=== PATIENT | male | born 1950 | race Caucasian/White ===

== ENCOUNTER 2017-06-28 10:52 | Outpatient (CLI) | payer MEDICARE ==
--- NOTE | 2017-06-28 12:44 | RAD ---
RADIOGRAPH CHEST 2 VIEWS: HISTORY: A 67-year-old male with dyspnea. FINDINGS: There is no air space density, pulmonary edema, pleural effusion, pneumothorax, or cardiomegaly. IMPRESSION: 1. No acute cardiopulmonary findings. 2. Status post right upper lobectomy with post surgical changes of the right hilum. rosa isela POS: [facility]
== END 2017-06-28 10:53 | disposition home or self-care (01) ==
LOC: RAD 10:52
PROVIDERS: ATTEND Internal Medicine Pulmonary Disease
DX: R06.00 Dyspnea, unspecified (principal); Z90.2 Acquired absence of lung [part of]; Z98.890 Other specified postprocedural states
CPT/HCPCS: 36415; 71046; 82565

== ENCOUNTER 2017-07-14 10:00 | Outpatient (CLI) | payer MEDICARE ==
--- NOTE | 2017-07-14 12:17 | PET ---
RADIONUCLIDE PET SCAN WITH CT ATTENUATION CORRECTION AND SPECT IMAGING: HISTORY: New left hilar mass. Initial staging. FINDINGS: Physiologic uptake of radiotracer is present throughout the enteric system and along each urinary tra ct. Hypermetabolic activity associated with the lobular mass at the right thyroid lobe now shows a ma ximum SUV of 11.4 (8.2). Q.Clear equals 13.2. Increased uptake associated with the left suprahilar mass shows a Q.Clear maximum SUV of 8.1. No abno rmal uptake is evident in the region of nodules at the left apex or the right lower lobe. Focal area of increased uptake at the body of the left iliac bone near the level of the lumbosacral j unction shows maximum Q.Clear SUV of 6.2. No other abnormal areas of radiotracer uptake are evident. Nondiagnostic CT attenuation correction im ages show calcified mediastinal lymph nodes. There is calcification of the arterial structures. Hyper dense stones in the dependent portion of the gallbladder lumen. Degenerative changes lumbar spine. Ri ght hip prosthesis. IMPRESSION: 1. 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 2. Interval increase in hypermetabolic activity associated with the dominant right thyroid lobe nodu le. 3. Cholelithiasis. 4. Atherosclerosis. POS: [facility]
== END 2017-07-14 10:01 | disposition home or self-care (01) ==
LOC: PET 10:00
PROVIDERS: ATTEND Internal Medicine Pulmonary Disease
DX: R91.8 Other nonspecific abnormal finding of lung field (principal); C34.02 Malignant neoplasm of left main bronchus; E04.1 Nontoxic single thyroid nodule; K80.20 Calculus of gallbladder without cholecystitis without obstruction; I70.90 Unspecified atherosclerosis
CPT/HCPCS: 78815; A9552

== ENCOUNTER 2017-07-18 11:04 | Outpatient (CLI) | payer MEDICARE ==
[2017-07-18 12:36] LABS: INR-International Normal Ratio 1.8; PTT 35.3 SEC (22.9-36.1); Prothrombin Time 21.5 SEC (12.0-14.7)
--- NOTE | 2017-07-20 20:13 | EKG ---
Test Reason : Blood Pressure : / mmHG Vent. Rate : 070 BPM Atrial Rate : 070 BPM P-R Int : 206 ms QRS Dur : 090 ms QT Int : 416 ms P-R-T Axes : 039 074 064 degrees QTc Int : 449 ms Normal sinus rhythm Normal ECG When compared with ECG of 24-SEP-2015 05:30, Right bundle branch block is no longer Present Confirmed by LAURIE GORDON (2) on 07/20/2017 8:13:25 PM Referred By: SHAKEEL Confirmed By:LAURIE GORDON
== END 2017-07-18 11:05 | disposition home or self-care (01) ==
LOC: LABBT 11:04
PROVIDERS: ATTEND Internal Medicine Pulmonary Disease
DX: R91.8 Other nonspecific abnormal finding of lung field (principal)
CPT/HCPCS: 85610; 85730; 93005; 93010

== ENCOUNTER 2017-07-21 06:30 | Day surgery (SDC) | payer MEDICARE ==
[2017-07-18 11:24] VITALS: BMI 30.6
[2017-07-21] MEDS ORDERED: Sodium Chloride 0.9% 1,000 ML IV SCH (07:15)
[2017-07-21] MEDS ORDERED: Lidocaine 1% (PF) 30 ML VIAL ONE (07:15)
[2017-07-21] MEDS ORDERED: Lidocaine 4% PF 5 ML AMP NEB SCH (07:15)
[2017-07-21] MEDS ORDERED: Fentanyl 100 MCG/2 ML VIAL ONE (07:15)
[2017-07-21] MEDS ORDERED: Benzocaine 20% Spray 60 ML CAN ONE (07:15)
[2017-07-21] MEDS ORDERED: Midazolam HCl 2 mg/2 ml Vial ONE (07:15)
--- NOTE | 2017-07-21 15:43 | OP ---
PROCEDURE PERFORMED: Bronchoscopy. INDICATION: Left upper lung mass, rule out bronchogenic carcinoma. POST-BRONCHOSCOPY DIAGNOSIS: Left upper lung mass, rule out bronchogenic carcinoma. After informed consent, the patient received DuoNeb with 4 mL of 4% lidocaine. During the procedure, he received a total of 3 mg of Versed and 75 mg of fentanyl. The flexible Olympus video bronchoscop e was then passed via the right nostril. Pharynx, upper pharynx, and vocal cords were visualized and normal. On entering the trachea, there was normal kevan sharp. Right lung was inspected initially . Previous right upper lobe lobectomy scar was seen which was normal. The rest of the right lung wa s unremarkable. Left lung was inspected thereafter. The left upper lung, the apical posterior, ante rior segments were slightly narrowed. Mucosa was slightly thickened, but no endobronchial disease wa s seen. The area bled to touch. The rest of the left lung including the lingular segment and the le ft lower lobe segments were unremarkable. The left upper lung was lavaged with normal saline 50 mL. Thereafter, under fluoroscopy, multiple brushings were obtained from the mass that appeared to be mo stly extrinsic. Unable to pSass the biopsy forceps because of the curve on the bronchoscope. No bio psy was done. Multiple brushings were obtained from the presumed left upper lung apical mass. The b rushings were sent for cytology. Washings were sent for AFB smear and culture, fungal smear culture, Gram stain and C&S. The patient tolerated the procedure well. BRIEF DISCHARGE NOTE: The patient tolerated the procedure well. Results will be notified to the pat ient and family. Further recommendation after above.
[2017-07-25 10:13] LABS: Fungus Stain Final report (.)
[2017-07-25 10:13] LABS: Fungus Stain Final report (.)
== END 2017-07-21 10:07 | disposition home or self-care (01) ==
LOC: SDC 06:30
PROVIDERS: ATTEND Internal Medicine Pulmonary Disease
PROC: 0B9G8ZX Drainage of Left Upper Lung Lobe, Via Natural or Artificial Opening Endoscopic, Diagnostic (ICD-10-PCS; principal; 2017-07-21)
PROC: 0BDG8ZX Extraction of Left Upper Lung Lobe, Via Natural or Artificial Opening Endoscopic, Diagnostic (ICD-10-PCS; 2017-07-21)
DX: R91.8 Other nonspecific abnormal finding of lung field (principal); Z88.8 Allergy status to other drugs, medicaments and biological substances
CPT/HCPCS: 76000; 87070; 87077; 87102; 87116; 87186; 87205; 87206; 88104; 88112; 88305; 99152; 99153; J2001; J2250; J3010

== ENCOUNTER 2017-08-04 15:30 | Inpatient (IN) | payer MEDICARE ==
--- NOTE | 2017-08-04 16:54 | RAD ---
CHEST ONE VIEW: 08/04/17 HISTORY: Emergency exam. Chest tube. Transfer. Chest pain. COMPARISON: Radiograph same day. FINDINGS: There is a left thoracostomy tube in place with tip near the mediastinum. Small to moderate left side d pneumothorax with apex at the left posterior second/third intercostal space. Heart size is enlarged . Linear opacities are present in both lung bases. There is abnormal enhancement of the hilum bilaterally. IMPRESSION: 1. Small left apical pneumothorax with satisfactory position of left thoracostomy. 2. Enlarged hilum bilaterally with abnormal appearance of the right suprahilar soft tissues. Thi s does correspond to the patient's recent PET CT likely corresponding to neoplasm. POS: [facility]
[2017-08-04] MEDS ORDERED: Ondansetron ODT 8 MG TAB ONE (17:31)
[2017-08-04] MEDS ORDERED: Morphine 4 MG/ML VIAL ONE (17:32)
[2017-08-04] MEDS ORDERED: Fentanyl 100 MCG/2 ML VIAL ONE (21:48)
[2017-08-04] MEDS ORDERED: HYDROcodone/Acetaminophen 5/325 mg Tablet PO PRN (22:57)
[2017-08-04] MEDS ORDERED: Ondansetron HCl/PF 4 MG/2 ML Vial IVP PRN (22:57)
[2017-08-04] MEDS ORDERED: Fentanyl 100 MCG/2 ML VIAL SLOW IVP PRN (22:57)
[2017-08-04] MEDS: Ketorolac Tromethamine 30 MG/ML VIAL IVP SCH (23:50)
[2017-08-04] MEDS: HYDROcodone/Acetaminophen 5/325 mg Tablet PO PRN (23:51)
[2017-08-05 02:14] VITALS: BMI 27.6
--- NOTE | 2017-08-05 04:11 | HP ---
HISTORY OF PRESENT ILLNESS: This is a 67-year-old gentleman who was found to have a left hilar mass and underwent a CT-guided biopsy about 2 days ago at [facility]. He developed pneumothorax and a catheter was placed and he was observed overnight with the catheter being removed the following day. He presented today with dyspnea and seen in the [place], where a 28 chest tube was placed and cu rrent chest x-ray shows good lung re-expansion. PAST MEDICAL HISTORY: Significant for right partial lung resection for carcinoma in 2014. He has a history of previous cardiac stents for myocardial infarctions, most recently in 2012 and remotely in 2001. He has also had some sort of arrhythmia, then treated by Dr. Rankin [facility] until it was stopped for these biopsies. PAST SURGICAL HISTORY: Zenker's diverticulum surgery, herniorrhaphy, right upper lobectomy, and colo n resection. SOCIAL HISTORY: The patient is retired. Nondrinker. Accompanied by family tonight. PHYSICAL EXAMINATION: GENERAL: He is an alert, cooperative gentleman in some discomfort due to his chest tube. He is john thing comfortably on room air with a heart rate of 84 and a blood pressure of 110. LUNGS: Clear to auscultation. ABDOMEN: Soft, nontender. EXTREMITIES: He has no peripheral edema and palpable pedal pulses. PLAN: At this time is for observation in the hospital on the admission with repeat chest x-ray; and if his x-ray looks good tomorrow, he currently has no air leak, we will stop the suction.
[2017-08-05] MEDS: Ketorolac Tromethamine 30 MG/ML VIAL IVP SCH ×4 (05:20→23:13)
--- NOTE | 2017-08-05 08:48 | RAD ---
PA AND LATERAL VIEWS OF CHEST: Date: 08/05/17 HISTORY: Chest tube placement. FINDINGS/IMPRESSION: Comparison made with exam from previous day. Left-sided chest tube remains in place with tiny left apical pneumothorax. The heart size is enlarged . There is volume loss in the right lung. POS: [facility]
[2017-08-05] MEDS: Docusate 100 MG CAP PO SCH ×2 (09:27→20:21)
[2017-08-05] MEDS: Ramipril 5 MG CAP PO SCH (09:27)
[2017-08-05] MEDS: Aspirin 81 mg Enteric Coated Tablet PO SCH (09:27)
[2017-08-05] MEDS: Enoxaparin Sodium 40 MG/0.4 ML SYRINGE SC SCH (09:32)
[2017-08-05] MEDS: HYDROcodone/Acetaminophen 5/325 mg Tablet PO PRN ×2 (09:39→20:23)
--- NOTE | 2017-08-05 20:02 | RAD ---
CHEST ONE VIEW: 08/05/17 HISTORY: 67-year-old male with history of shortness of breath. Left chest tube in place. COMPARISON: 08/05/17. There is a left chest tube extending into the left lung apical region. Tiny amount of subcutaneous em physema on the left. Possible very tiny apical pneumothorax but no significant pneumothorax seen. Mil d stable increased linear and interstitial markings. IMPRESSION: Left chest tube extending in the left apex with minimal subcutaneous emphysema. No significant pneumo thorax. The possibility of a very tiny apical pneumothorax would be difficult to totally exclude prasanth green. POS: [facility]
[2017-08-06] MEDS: HYDROcodone/Acetaminophen 5/325 mg Tablet PO PRN ×2 (01:32→23:58)
[2017-08-06] MEDS: Ketorolac Tromethamine 30 MG/ML VIAL IVP SCH ×4 (05:02→23:48)
--- NOTE | 2017-08-06 07:38 | RAD ---
CHEST 1 VIEW: Date: 08/06/17 HISTORY: 67-year-old male with history of chest tube post biopsy. COMPARISON: 08/05/17. FINDINGS: Again noted is a left chest tube extending into the left apex. Tiny amount of subcutaneous emphysema. Probable very tiny residual left apical pneumothorax. Stable appearing left chest. IMPRESSION: Probable very tiny residual left apical pneumothorax. Left chest tube in place. Small amount of subcu taneous emphysema. No new process. POS: [facility]
[2017-08-06] MEDS: Ramipril 5 MG CAP PO SCH (09:38)
[2017-08-06] MEDS: Docusate 100 MG CAP PO SCH ×2 (09:39→20:05)
[2017-08-06] MEDS: Aspirin 81 mg Enteric Coated Tablet PO SCH (09:39)
[2017-08-06] MEDS: Enoxaparin Sodium 40 MG/0.4 ML SYRINGE SC SCH (09:39)
[2017-08-06] MEDS: Polyethylene Glycol 3350 17 GM Packet PO PRN (20:05)
[2017-08-07] MEDS: Ketorolac Tromethamine 30 MG/ML VIAL IVP SCH ×3 (04:59→17:59)
[2017-08-07] MEDS: HYDROcodone/Acetaminophen 5/325 mg Tablet PO PRN ×2 (05:00→18:05)
[2017-08-07] MEDS: Ramipril 5 MG CAP PO SCH (09:09)
[2017-08-07] MEDS: Aspirin 81 mg Enteric Coated Tablet PO SCH (09:09)
[2017-08-07] MEDS: Enoxaparin Sodium 40 MG/0.4 ML SYRINGE SC SCH (09:09)
[2017-08-07] MEDS: Docusate 100 MG CAP PO SCH ×2 (09:10→20:27)
[2017-08-07] MEDS ORDERED: Ciprofloxacin 500 MG TAB PO SCH (10:00)
--- NOTE | 2017-08-07 10:05 | RAD ---
UPRIGHT PORTABLE CHEST 1 VIEW: Date: 08/07/17 HISTORY: 67-year-old male, follow-up left side pneumothorax. FINDINGS: Left chest tube remains in place. Probable persistent very tiny apical pneumothorax on the left side. Chronic changes on the right side. IMPRESSION: Stable chest. Probable very tiny residual apical pneumothorax. POS: [facility]
[2017-08-07] MEDS: Polyethylene Glycol 3350 17 GM Packet PO PRN (18:05)
[2017-08-07] MEDS: Ciprofloxacin 500 MG TAB PO SCH (20:25)
[2017-08-08] MEDS: Ketorolac Tromethamine 30 MG/ML VIAL IVP SCH ×2 (00:01→06:29)
[2017-08-08] MEDS: Ciprofloxacin 500 MG TAB PO SCH (06:28)
[2017-08-08 08:00] VITALS: BP 143/88; TEMP 98.9
--- NOTE | 2017-08-08 08:55 | RAD ---
PORTABLE CHEST: COMPARISON: 08/07/17 study. HISTORY: Chest tube removal. FINDINGS: Heart size is within normal limits. COPD changes are present. What appears to be a very tiny apical pneumothorax is seen. The right lung is clear. Old right rib fractures are present. IMPRESSION: 1. Tiny left apical pneumothorax. 2. Left hilar prominence, stable. POS: [facility]
--- NOTE | 2017-08-08 10:54 | DIS ---
The patient was admitted through the emergency room with a pneumothorax following a needle biopsy don e at another institution. A chest tube was placed in an outlying emergency room. The patient redeve loped a pneumothorax about a day and a half after admission despite having had no air leak up to that point. He was found to have a connection issue between his chest tube and the Pleur-evac system. T his was repaired. The patient then had his tube removed and to be discharged home with a normal ches t x-ray. Pathology is still pending from needle biopsy.
== END 2017-08-08 08:20 | disposition home or self-care (01) | DRG 201 ==
LOC: ERS 15:30 → SURG A 22:52
PROVIDERS: ADMIT Thoracic Surgery (Cardiothoracic Vascular Surgery); ATTEND Thoracic Surgery (Cardiothoracic Vascular Surgery)
DX: J93.9 Pneumothorax, unspecified (principal); Z87.891 Personal history of nicotine dependence; Z85.118 Personal history of other malignant neoplasm of bronchus and lung; Z90.2 Acquired absence of lung [part of]; Z95.5 Presence of coronary angioplasty implant and graft; Z79.01 Long term (current) use of anticoagulants; Z90.49 Acquired absence of other specified parts of digestive tract
CPT/HCPCS: 71045; 71046; 96374; 96375; J1650; J1885; J2270; J3010

== ENCOUNTER 2017-08-25 12:16 | Outpatient (CLI) | payer MEDICARE ==
--- NOTE | 2017-08-25 14:25 | MRI ---
BRAIN MRI WITH AND WITHOUT CONTRAST: Date: 08-25-17 Comparison: None. History: Lung cancer, assess for intracranial metastatic disease. Technique: Multiplanar, multisequence MR imaging of the brain is obtained with and without contrast. FINDINGS: The diffusion weighted imaging demonstrates no evidence for acute infarction. The gradient echo imaging demonstrates innumerable foci of blooming artifact throughout the bilateral cerebral hemispheres, at multiple levels within the brain stem, particularly the belly of the evelio, and within the left cerebellar hemisphere. These areas of blooming artifact suggest foci of intracran ial hemorrhage and/or calcification with precontrast T1 weighted imaging demonstrating numerous bilat eral T1 hyperintense lesions. Foci of increased T2 and FLAIR signal are seen corresponding with the maurice londono described multifocal lesions. Post contrast imaging demonstrates enhancement of innumerable intr aaxial lesions throughout the bilateral cerebral hemispheres, the brain stem, and bilateral cerebral hemispheres. The largest lesion in the left frontal lobe is noted inferiorly/medially on post contras t axial image 11 of series 9 measuring 1.3 cm. The largest lesion in the left occipital region is loc ated medially on image 12 of series 9 and measures 1.3 cm. Largest left temporal lobe lesion is noted inferiorly on image 7 of series 9 and measures 7 mm. Numerous left parietal lesions measure up to 7 mm. Largest right frontal lobe lesion is seen on image 12 of series 9 and measures up to 8 mm. Lana us parietal occipital and temporal right sided lesions are less than 1 cm in size. Innumerable subcen timeter lesions are noted within the brain stem, particularly the evelio, and throughout bilateral cere bellar hemispheres. No significant midline shift, mass effect, or ventricular enlargement is seen at this time. Imaged paranasal sinuses/mastoid air cells are well aerated. Arterial flow voids at axial level of sk ull base appear grossly unremarkable on T2 weighted imaging. IMPRESSION: Innumerable supratentorial and infratentorial intraaxial lesions, evidence of extensive metastatic di sease. Some of these lesions demonstrate T1 precontrast hyperintensity and many of these lesions demo nstrate blooming artifact on gradient echo imaging, consistent with hemorrhagic metastatic lesions. Results called to Dr. James at 2:15 p.m. on 08-25-17. Code CR POS: [facility]
--- NOTE | 2017-08-25 14:40 | MRI ---
MRI PELVIS WITH AND WITHOUT CONTRAST: Date: 08/25/17 HISTORY: Evaluate for metastatic disease. Lung cancer. COMPARISON: PET CT dated 07/14/17. FINDINGS: Corresponding to the abnormality seen on the PET CT in the left iliac bone and extending to the left iliac wing and left SI joint is a T1 hypo/T1 mildly hyperintense mass with enhancement. This extends through the anterior and posterior iliac cortex with a permeative appearance. It measures approximate ly 4.9 x 2.3 x approximately 4.3 cm. There is some edema long the deep margin of the left iliacus mus syd. There are enlarging soft tissue nodules at the left hemipelvis. The first is in the deep subcutaneous fat near the superior margin of the left gluteus lida muscle interposed in the fat between the gl uteus medius and lida muscles. This measures approximately 1.2 cm. There is also a soft tissue nod ule in the fat between the tensor fasciae latae muscle and the rectus femoris measuring 1.3 cm. Moder ate facet arthrosis lower lumbar spine. No other abnormal areas of definite metastatic involvement. IMPRESSION: 1. Findings are confirming left iliac bone metastatic deposit. 2. Findings suggesting soft tissue metastatic deposits: 1. Along the lateral margin left indirect rectus femoris tendon origin 2. Interposed between the left gluteus medius and minimus muscles in the subcutaneous fat. 3. Within the right tensor fasciae latae muscle. If biopsy is needed for confirmation, the iliac mass would probably be the easiest. 3. Bilateral direct fat-containing inguinal hernias. POS: [facility]
== END 2017-08-25 12:17 | disposition home or self-care (01) ==
LOC: MRI 12:16
PROVIDERS: ATTEND Internal Medicine Medical Oncology
DX: C18.2 Malignant neoplasm of ascending colon (principal); C79.51 Secondary malignant neoplasm of bone; K40.90 Unilateral inguinal hernia, without obstruction or gangrene, not specified as recurrent
CPT/HCPCS: 70553; 72197

== ENCOUNTER 2017-09-05 07:52 | Observation (INO) | payer MEDICARE ==
[2017-09-05] MEDS ORDERED: Diazepam 5 MG TAB ONE (08:30)
[2017-09-05 09:07] LABS: #Lymphocytes 0.4 thou/uL (1.20-3.40); #Monocytes 0.2 thou/uL (0.11-0.59); #Neutrophils 1.5 thou/uL (1.40-6.50); %Basophils 0.3 % (0.0-1.0); %Eosinophils 0.8 % (0.0-10.0); %Lymphocytes 20.3 % (21.0-51.0); %Monocytes 10.2 % (0.0-10.0); %Neutrophils 68.3 % (42.0-75.0); Hemoglobin 13.7 g/dL (14.0-18.0); Mean Corpuscular HGB CONC 31.6 g/dL (32.0-36.0); Mean Corpuscular Hemoglobin 26.7 pg (27.0-31.0); Mean Corpuscular Volume 84.4 fL (78.0-98.0); Mean Platelet Volume 6.6 fL (7.4-10.4); Platelet Count 157 thou/uL (130-400); RBC Distribution Width 13.4 % (11.5-14.5); Red Blood Cell (RBC) Count 5.14 mill/uL (4.70-6.10); White Blood Cell (WBC) Count 2.1 thou/uL (4.8-10.8)
[2017-09-05 09:31] LABS: CKMB 1.7 ng/mL (0-6.6); Troponin I Less than 0.010 ng/mL (< 0.028)
[2017-09-05 09:32] LABS: ALT (SGPT) 26 U/L (8-55); AST (SGOT) 15 U/L (5-34); Albumin 3.9 g/dL (3.4-4.8); Alkaline Phosphatase 82 U/L (40-150); Anion Gap 10 mmol/L (10-20); BUN (Urea Nitrogen) 12 mg/dL (8.4-25.7); Bilirubin, Total 0.5 mg/dL (0.2-1.2); CK (CPK) 29 U/L (30-200); Calc. Creatinine Clearance 0 mL/min (70-130); Calcium 8.5 mg/dL (7.8-10.44); Carbon Dioxide 26 mmol/L (23-31); Chloride 101 mmol/L (98-107); Estimated GFR-MDRD Greater than 90; Globulin 2.3 g/dL (2.4-3.5); Glucose 139 mg/dL (80-115); Lipase 36 U/L (8-78); Potassium 4.3 mmol/L (3.5-5.1); Protein, Total 6.2 g/dL (5.8-8.1); Sodium 133 mmol/L (136-145)
--- NOTE | 2017-09-05 09:41 | RAD ---
RADIOGRAPH CHEST 1 VIEW: Date: 09/05/17 Time: 0801 HOURS HISTORY: 67-year-old male with nausea and emesis. Status post chemotherapy for metastatic left lung cancer. COMPARISON: 08/08/17. FINDINGS: The previously demonstrated tiny left apical pneumothorax is no longer present. There has been no oth er interval change. Left hilum is enlarged. Hyperlucency and hyperinflation of the bilateral upper lo bes consistent with COPD. Chronically elevated right hemidiaphragm. No cardiomegaly or pulmonary elsa a. No consolidation. IMPRESSION: 1. No acute findings. 2. Interval resolution of the previously demonstrated tiny left apical pneumothorax. 3. Chronically elevated right hemidiaphragm. 4. Emphysema. 5. Left hilar primary lung cancer. JN [] POS: [facility]
[2017-09-05] MEDS ORDERED: Ondansetron ODT 4 MG TAB ONE ×2 (09:44→13:40)
--- NOTE | 2017-09-05 10:35 | CT ---
CT ANGIO CHEST WITH CONTRAST: Date: 09/05/17 Multiple axial tomograms obtained through chest following pulmonary angio protocol with multiplanar r econstruction and 3D postprocessing. INDICATION: Lung cancer, currently on chemo and radiation. Hypoxia. Assess for pulmonary embolus. Comparison made to CT chest from [facility] dated 06/28/17. FINDINGS: Pulmonary arteries show adequate opacification. No evidence of pulmonary embolus identified. There ar e postoperative changes in the right hilar region with multiple surgical clips. Review of the lung richard show no evidence of inflammatory infiltrate. No effusion. The 1.0 cm nodule in the left apex is again seen and is unchanged. The left hilar mass lesion is again seen and has mildly increased in size. Maximal craniocaudal dimen bora in the coronal plane is measured at 4.6 cm today, whereas previous maximal craniocaudal dimensio n in coronal plane measured at 4.0 cm. There is now a right hilar mass which was not present on the 06/28/17 exam. This right hilar mass curtis sures approximately 2.0 cm greatest dimension in the coronal plane. Multinodular and enlarged right lobe of thyroid is present. This was partially imaged on the prior ex am. There is an enlarging lymph node in the left axilla today which has significantly changed since the p rior exam. This lymph node now measures 2.5 cm. There is another 1.5 cm left axillary nodule, which i s new, and there are other smaller, subcentimeter, nodes now present. IMPRESSION: 1. No evidence of pulmonary embolus. 2. Enlarging left hilar mass since recent exam. 3. New right hilar mass is now seen as described above. 4. New left axillary adenopathy since prior exam. 5. The 1.0 cm nodule in the left apex is again noted. 6. Multinodular enlarged right lobe of thyroid again noted. 7. Incidentally noted are numerous calcified gallstones layering dependently in the neck of the gall bladder. POS: [facility]
[2017-09-05 11:45] LABS: Bilirubin Negative (Negative); Blood, Urine Negative (Negative); Clarity CLEAR (Clear); Glucose, Urine (Dipstick) Negative (Negative); Leukocyte Negative (Negative); Nitrite Negative (Negative); Protein, Urine (Dipstick) Negative (Neg-Trace); Specific Gravity, Urine 1.015 (1.002-1.036); Urobilinogen 0.2 mg/dL (0.2-1.0)
[2017-09-05] MEDS ORDERED: Iopamidol 370 76% 100 ML VIAL ONE (13:47)
--- NOTE | 2017-09-05 14:07 | RAD ---
SUPINE ABDOMEN: HISTORY: Small bowel obstruction. Question ileus. FINDINGS/IMPRESSION: There is contrast opacification of the urinary collecting structures and opacification of the bladder from recent IV contrast injection. Bowel gas pattern appears unremarkable on this supine 1-view projection. There appears to be some sc attered gas and stool in the colon. No evidence of small bowel dilatation or obstruction on this sin gle projection. Supine and upright views would be of benefit if there is concern of small bowel obst ruction. POS: [facility]
[2017-09-05] MEDS ORDERED: Ondansetron HCl/PF 4 MG/2 ML Vial IVP PRN (14:54)
[2017-09-05] MEDS ORDERED: Meclizine HCl 12.5 MG TAB PO PRN (14:54)
[2017-09-05] MEDS ORDERED: Ondansetron ODT 4 MG TAB PO PRN (14:54)
[2017-09-05] MEDS ORDERED: Metoclopramide HCl 10 MG/2 ML VIAL IVP PRN (14:54)
[2017-09-05] MEDS ORDERED: Acetaminophen 325 MG TAB PO PRN (14:54)
[2017-09-05] MEDS: Sodium Chloride 0.9% 1,000 ML IV SCH (15:00)
[2017-09-05] MEDS: HYDROcodone/Acetaminophen 5/325 mg Tablet PO PRN ×2 (16:13→20:33)
[2017-09-05 17:13] VITALS: BMI 28.5
[2017-09-05] MEDS: Tamsulosin HCl 0.4 MG CAP PO SCH (20:33)
[2017-09-06] MEDS: HYDROcodone/Acetaminophen 5/325 mg Tablet PO PRN (02:30)
[2017-09-06 04:43] LABS: ALT (SGPT) 25 U/L (8-55); AST (SGOT) 17 U/L (5-34); Albumin 3.9 g/dL (3.4-4.8); Alkaline Phosphatase 79 U/L (40-150); Anion Gap 10 mmol/L (10-20); BUN (Urea Nitrogen) 9 mg/dL (8.4-25.7); Bilirubin, Direct 0.3 mg/dL (0.1-0.3); Bilirubin, Total 0.8 mg/dL (0.2-1.2); Calc. Creatinine Clearance 132 mL/min (70-130); Calcium 8.9 mg/dL (7.8-10.44); Carbon Dioxide 28 mmol/L (23-31); Chloride 99 mmol/L (98-107); Estimated GFR-MDRD Greater than 90; Glucose 107 mg/dL (80-115); Potassium 3.7 mmol/L (3.5-5.1); Protein, Total 6.3 g/dL (5.8-8.1); Sodium 133 mmol/L (136-145)
[2017-09-06] MEDS: Sodium Chloride 0.9% 1,000 ML IV SCH ×4 (04:45→21:00)
[2017-09-06 04:56] LABS: Hemoglobin 14.6 g/dL (14.0-18.0); Mean Corpuscular HGB CONC 33.3 g/dL (32.0-36.0); Mean Corpuscular Hemoglobin 27.9 pg (27.0-31.0); Mean Corpuscular Volume 83.6 fL (78.0-98.0); Mean Platelet Volume 6.4 fL (7.4-10.4); Platelet Count 169 thou/uL (130-400); RBC Distribution Width 13.4 % (11.5-14.5); Red Blood Cell (RBC) Count 5.24 mill/uL (4.70-6.10); White Blood Cell (WBC) Count 2.9 thou/uL (4.8-10.8)
[2017-09-06 04:57] LABS: Band 7 % (5-11); Eosinophils 2 % (0-10); Lymphocytes 42 % (21-51); MDiff Complete? YES; Monocytes 7 % (0-10); Neutrophil 42 % (42-75); PLT Morphology Comment Appears Adequate
[2017-09-06] MEDS: Mometasone/Formoterol 120 PUFF INHALER INH SCH (07:03)
--- NOTE | 2017-09-06 07:41 | HP ---
PRIMARY CARE PHYSICIAN: Dr. Lozoya. CHIEF COMPLAINT: Nausea and vomiting. HISTORY OF PRESENT ILLNESS: Mr. Chen is a pleasant 67-year-old gentleman that has a history of elidia nocarcinoma of the prostate as well as lung cancer. He is status post a right lobectomy. He was rec ently diagnosed with what appears to be recurrent lung cancer and has been treated by Dr. James. He recently started his first cycle of chemotherapy and he received this on 08/24. This went for 3 d ays and the plan was for him to proceed with radiation therapy as well. This was supposed to start l ater this week and he was supposed to have a MediPort placed on tomorrow. However, this morning, eder und 1:00 in the morning, he woke up from sleep feeling like he needed to throw up. He was nauseated and then began vomiting. When asked how many times he vomited, he says he is not sure, but it has be en multiple times. He says that he has not thrown up any blood. He says he has had some discomfort in the upper chest and upper stomach area. He says it is very difficult to quantitate. He says that his chest hurts, but he denied that it feels like a stabbing pain or a cramping pain. He also says that he cannot tell whether or not food makes the pain better or worse. It seems to not have made an y difference. He does say that the nausea seems to be somewhat positional in that it does tend to ge t worse with movement. He denies any fevers or chills. When asked about diarrhea, he says he has ch ronic diarrhea, but this is related to him taking medications for constipation. He says the diarrhea is watery and there is no blood. He has never had anything happen to him like this before. Other s ignificant symptoms, he says he has had a headache rather constantly and it is over the entire head. He does have sinus or sinus symptoms, but these are relatively constant. He does feel occasionally dizzy and lightheaded, but this is usually when he gets up to move around. He also complains of some nocturia as well as some difficulty with his urine stream, but he attributes this to prostate cance r. REVIEW OF SYSTEMS: All systems were reviewed and negative except as mentioned in the history of pres ent illness. PAST MEDICAL HISTORY: Significant for prostate cancer, hypertension, heart disease, atrial fibrillat ion, COPD. PAST SURGICAL HISTORY: He has had a right lobectomy, hip replacement, surgery for Zenker's diverticu lum and cardiac ablation for atrial fibrillation. ALLERGIES: AMBIEN. SOCIAL HISTORY: He is , has 3 children. His sister is his surrogate decision maker and her n delaney is Violette Oakes. He has a DNR order and would not want to be resuscitated. He is a former smoke r. He quit 2 years ago. He denies any alcohol use and again he is . FAMILY HISTORY: Significant for heart disease in his father as well as grandfather had lung cancer a nd hypertension also runs in the family. MEDICATIONS: Include metoprolol 50 mg daily, aspirin 81 mg a day, Flomax 0.4 mg twice daily, Crestor 10 mg daily, and ramipril 5 mg daily. PHYSICAL EXAMINATION: GENERAL: He is alert and oriented. He appears to be in no acute distress. He is well-developed and well-nourished. VITAL SIGNS: Blood pressure was 143/90, heart rate 90, respiratory rate of 18, temperature is 97.5. HEENT: Pupils are equal, round and reactive. Extraocular muscles are intact. Sclerae are anicteric . He did have some horizontal nystagmus. His tympanic membranes were difficult to visualize. Quite a bit of wax in the external canal, but what I could see of the internal auditory canals, there was no fluid behind the drum and no erythema. Throat: He is edentulous and the patient's uvula was not visualized and there was no erythema. NECK: There is no adenopathy, no bruits. LUNGS: Clear to auscultation. There is no wheezing, no rales. CARDIOVASCULAR: He had normal S1 and S2. I did not appreciate an S3 or S4. No murmurs, clicks, no rubs. ABDOMEN: Soft. He had some mild epigastric tenderness. There was no rebound or guarding, no organo megaly. EXTREMITIES: There is no edema, no calf tenderness. He does have some hammertoe deformities on both feet and 2+ dorsalis pedis pulses bilaterally. NEUROLOGIC: He is moving all extremities and is grossly nonfocal. LABORATORY DATA AND IMAGING DATA: White blood cell count is 2.1, hemoglobin 13.7, hematocrit is 43.3 , platelet count is 157. Sodium 133, potassium 4.3, chloride is 101, CO2 is 26, BUN of 12, creatinin e 0.69, and glucose is 139. His liver function tests were normal. Troponin was 0.010. Urinalysis w as essentially negative. He had a CT scan of the chest for pulmonary embolism. This was negative fo r PE. There was an enlarging left hilar mass, a new right hilar mass, new axillary adenopathy since prior exam. A 1 cm nodule in the left apex of the lung was once again noted and multinodular enlarge d right lobe of the thyroid and incidentally noted numerous calcified gallstones. The patient had an MRI on of the brain showing innumerable supratentorial and infratentorial intraaxial lesions, e vidence for metastatic disease. ASSESSMENT AND PLAN: 1. This is a pleasant 57-year-old gentleman who presents to the emergency room with intractable naus ea and vomiting. The etiology of which is unclear. He has a history of lung cancer who has already been started on chemotherapy; however, he is almost 2 weeks out from his last treatment; therefore, i t is likely that the nausea and vomiting is chemotherapy related. It is noted that he has numerous c erebral metastatic disease, but there is no evidence of significant mass effect. Based on these meta static lesions, the ventricles were reported to be normal. Therefore, it is unlikely that [employer] W[employer] TESTER etiolo gy for the nausea and vomiting. He does give some history suggestive of benign positional vertigo; h owever, it is not a classic case. He did have some horizontal nystagmus. He does complain of some s inus complaints. Therefore, it could be related to this and he also has innumerable gallstones incid entally noted; however, he does not have an elevation in his LFTs. He does not seem to have postpran dial symptoms. Therefore, it is unclear whether or not the gallstones are causing any problems eithe r. Therefore, with regards to his evaluation and workup, I think it is prudent to see if this is briana ething self-limiting such as a gastroenteritis or possible labyrinthitis or vertigo which hopefully w ill be self-limiting and fairly quickly and we will treat him symptomatically over the course of the next 24-48 hours. If his symptoms persist, then we may need to pursue a HIDA scan to see whether or not the stones in the gallbladder actually causing some type of symptomatology. We will also consult his oncologist for their input as well and we will also consult General Surgery with regards to plac ing his MediPort which had been a planned surgery on tomorrow as well. 2. He has a history of chronic atrial fibrillation. He had been on Xarelto; however, this is on hol d. His sister says she believes likely related to the brain tumors. Therefore, we will continue to hold this during his hospital stay. His heart rate so far is controlled. 3. History of chronic obstructive pulmonary disease. Medications, there is no list of any type of i nhalers, but we will place him on some DuoNebs as needed and further treatment will be based on the p atient's clinical course and response to therapy.
[2017-09-06] MEDS ORDERED: Bupivacaine/Epinephrine 0.25% 30 ML VIAL ONE (07:43)
[2017-09-06] MEDS ORDERED: Lidocaine 2% 10 ML INJ ONE (07:43)
[2017-09-06] MEDS ORDERED: CEFAZOLIN/Water 2 GM/20 ML SYRINGE ONE (07:53)
[2017-09-06] MEDS ORDERED: Midazolam HCl 2 mg/2 ml Vial ONE (07:56)
[2017-09-06] MEDS ORDERED: Fentanyl 100 MCG/2 ML VIAL ONE (07:56)
[2017-09-06] MEDS ORDERED: HYDROcodone/Acetaminophen 10/325 mg Tablet PO PRN (09:17)
--- NOTE | 2017-09-06 09:42 | OP ---
DATE OF PROCEDURE: 09/06/2017. PREOPERATIVE DIAGNOSIS: Lung cancer. POSTOPERATIVE DIAGNOSIS: Lung cancer. PROCEDURE PERFORMED: Tunneled central line subcutaneous port (MediPort, CT injectable). SURGEON: Dr. Azevedo. ANESTHESIA: General. ESTIMATED BLOOD LOSS: Minimal. COMPLICATIONS: None. SPECIMEN: None. FINDINGS: Tip of the catheter is at the atriocaval junction. TECHNIQUE: The patient was taken to the operating room and placed supine on the table. After sedati on was obtained, bilateral neck and chest is prepped and draped in a sterile fashion. Local anesthet ic infiltrated over the right internal jugular vein. Internal jugular vein cannulated using a 22-gau ge finder needle followed by a Seldinger needle. Wire was passed into the superior vena cava under f luoroscopic guidance. A small tiana was made at the wire entrance site. A separate 3-cm incision was made in the right upper chest. Subcutaneous pocket made below the lower incision. Tubing for the M ediPort tunneled from the inferior to superior incision. Introducer sheath placed over the wire into the superior vena cava under fluoroscopic guidance. The dilator and wire removed. The end of the c atheter was threaded into the sheath and the sheath is peeled away. The tip of the catheter is at th e atriocaval junction. The MediPort tubing is cut to fit the MediPort at the lower incision, connect ed to the port which is sewn to the chest wall in the subcutaneous pocket. The MediPort flushes and draws blood without difficulty. It is flushed with a heparin flush. All incisions were irrigated an d closed using 3-0 Vicryl, 4-0 Monocryl, and Dermabond. The patient was en route to recovery in stab le condition. All instrument counts, needle counts, lap counts were correct.
[2017-09-06] MEDS: Tamsulosin HCl 0.4 MG CAP PO SCH ×2 (10:29→20:38)
--- NOTE | 2017-09-06 11:01 | RAD ---
CHEST TWO VIEWS: INDICATIONS: Mediport placement. COMPARISON: 09/15/2017 FINDINGS: A right chest port is in place with the tip overlying the SVC region. No post procedural pneumothora x is visualized. Mild elevation of the right hemidiaphragm is again seen. The chest is otherwise si milar. IMPRESSION: Interval placement of right-sided Mediport without evidence of post procedural pneumothorax. POS: [facility]
[2017-09-06] MEDS ORDERED: PROPOFOL 200 MG/20 ML VIAL ONE (11:43)
[2017-09-06] MEDS ORDERED: Ondansetron HCl/PF 4 MG/2 ML Vial ONE (11:43)
[2017-09-06] MEDS: HYDROcodone/Acetaminophen 10/325 mg Tablet PO PRN ×3 (12:39→20:35)
--- NOTE | 2017-09-06 15:05 | PDOC.PN ---
- Subjective Encounter Start Date: 09/06/17 Encounter Start Time: 11:45 Subjective: pt up in bed still complains of being dizzy - Objective Resuscitation Status: Resuscitation Status DNR:Do Not Resuscitate Vital Signs & Weight: Vital Signs (12 hours) Temp Pulse Resp BP Pulse Ox 09/06/17 09:10 98.0 F 90 18 133/81 97 09/06/17 07:03 82 14 96 Weight Weight 210 lb I&O: 09/05/17 09/06/17 09/07/17 06:59 06:59 06:59 Intake Total 1680 Output Total 300 1250 Balance 1380 -1250 Result Diagrams: 09/06/17 04:05 09/06/17 04:05 Phys Exam - Physical Examination HEENT: PERRLA, moist MMs, sclera anicteric, TM's clear, oral pharynx no lesions , 2+ tonsils Neck: no nodes, no JVD, supple, full ROM Respiratory: no wheezing, no rales, no rhonchi, wheezing present, clear to auscultation bilateral Cardiovascular: RRR, no significant murmur, no rub, gallop, irregular Gastrointestinal: soft, non-tender, no distention, positive bowel sounds Musculoskeletal: no edema, pulses present, edema present significant dizziness Dx/Plan (1) Dizziness Code(s): R42 - DIZZINESS AND GIDDINESS Status: Acute (2) Anemia Code(s): D64.9 - ANEMIA, UNSPECIFIED Status: Chronic (3) Paroxysmal a-fib Code(s): I48.0 - PAROXYSMAL ATRIAL FIBRILLATION Status: Chronic (4) A-fib Code(s): I48.91 - UNSPECIFIED ATRIAL FIBRILLATION Status: Acute - Plan pt is very dizzy -: will schedule antivert. pt on decadron -: dizziness most likely due to his brain mets? -: will get PT to see pt. cerebellum test normal but unable to get -: pt up since he is very unstable. * . Review of Systems - Review of Systems ENT: negative: Ear Pain, Ear Discharge, Nose Pain, Nose Discharge, Nose Congestion, Mouth Pain, Mouth Swelling, Throat Pain, Throat Swelling, Other Respiratory: negative: Cough, Dry, Shortness of Breath, Hemoptysis, SOB with Excertion, Pleuritic Pain, Sputum, Wheezing Gastrointestinal: negative: Nausea, Vomiting, Abdominal Pain, Diarrhea, Constipation, Melena, Hematochezia, Other Genitourinary: negative: Dysuria, Frequency, Incontinence, Hematuria, Retention , Other Musculoskeletal: negative: Neck Pain, Shoulder Pain, Arm Pain, Back Pain, Hand Pain, Leg Pain, Foot Pain, Other Other: dizziness - Medications/Allergies Allergies/Adverse Reactions: Allergies Allergy/AdvReac Type Severity Reaction Status Date / Time zolpidem tartrate Allergy Severe Anxiety Verified 07/18/17 11:24 [From [place]] Medications: Current Medications Acetaminophen (Tylenol) 650 mg PO Q4H PRN PRN Reason: Headache/Fever or Pain Hydrocodone Bitart/Acetaminophen ([place] 5/325) 1 tab PO Q4H PRN PRN Reason: Moderate to Severe Pain (6-10) Last Admin: 09/06/17 02:30 Dose: 1 tab Hydrocodone Bitart/Acetaminophen ([place] 10/325) 1 tab PO Q4H PRN PRN Reason: Pain Hydrocodone Bitart/Acetaminophen ([place] 10/325) 2 tab PO Q4H PRN PRN Reason: Pain Last Admin: 09/06/17 12:39 Dose: 2 tab Albuterol/Ipratropium (Duoneb) 3 ml NEB [id number] PRN PRN Reason: SOB &/or Wheezing Dexamethasone (Decadron) 4 mg PO Q8H [facility] Sodium Chloride (Normal Saline 0.9%) 1,000 mls @ 75 mls/hr IV .[id number] [facility] Last Admin: 09/06/17 05:05 Dose: 1,000 mls Meclizine HCl (Antivert) 12.5 mg PO TID [facility] Metoclopramide HCl (Reglan) 5 mg IVP Q4H PRN PRN Reason: Nausea Mometasone Furoate/Formoterol Fumar (Dulera 200 Mcg/5 Mcg Inhaler) 1 puff INH DAILY-RT [facility] Last Admin: 09/06/17 07:03 Dose: 1 puff Ondansetron HCl (Zofran Odt) 4 mg PO Q6H PRN PRN Reason: Nausea/Vomiting Last Admin: 09/05/17 16:13 Dose: 4 mg Ondansetron HCl (Zofran) 4 mg IVP Q6H PRN PRN Reason: Nausea/Vomiting Sodium Chloride (Flush - Normal Saline) 10 ml IVF Q12HR [facility] Sodium Chloride (Flush - Normal Saline) 10 ml IVF PRN PRN PRN Reason: Saline Flush Tamsulosin HCl (Flomax) 0.4 mg PO BID [facility] Last Admin: 09/06/17 10:29 Dose: 0.4 mg
[2017-09-06] MEDS: Meclizine HCl 12.5 MG TAB PO SCH ×2 (15:15→20:37)
[2017-09-06] MEDS: Dexamethasone 4 MG TAB PO SCH ×2 (15:15→22:50)
--- NOTE | 2017-09-06 16:24 | CON ---
DATE OF CONSULTATION: 09/06/2017 REASON FOR CONSULTATION: Lung cancer. HISTORY OF PRESENT ILLNESS: Mr. Chen is a 67-year-old gentleman with a significant oncological history including stage I carcinoma of the colon in 2002 , non-small cell lung cancer stage IB in 2014, prostate cancer diagnosed in 2017 and most recently a neuroendocrine tumor, high grade of the left lung in . He presented to the emergency room with intractable nausea and vomiting. 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 He received a dose of cycle 1 of carboplatin and STRATEGY DIRECTOR- 16 in mid August. He had an MRI of the brain which showed a brain met numerous metastatic lesions. He was due to start radiation on this past Tuesday. The patient has been complaining of dizziness on this admission and was initially started on meclizine with no improvement. His nausea and vomiting has resolved. We were asked to see the patient regarding his cancer. The patient had a MediPort placed this morning. PAST MEDICAL HISTORY: 1. Oncological history is noted in HPI. 2. Newly diagnosed metastatic brain lesions. 3. Hypertension. 4. History of [place] with stent placement. 5. Atrial fibrillation. 6. Hyperlipidemia. 7. COPD. 8. Acid reflux. 9. Zenker's diverticulum. PAST SURGICAL HISTORY: 1. Coronary artery stent placement. 2. Right hemicolectomy. 3. Right upper lobectomy. 4. Right neck skin biopsy. 5. EGD. 6. Left upper lobe bronchoscopy. 7. Left lobe FNA. ALLERGIES: AMBIEN. HOME MEDICATIONS: 1. Aspirin 325 mg daily. 2. Nexium 20 mg daily. 3. Metoprolol succinate 25 mg daily. 4. Ramipril 5 mg daily. 5. Rosuvastatin calcium 10 mg daily. 6. Flomax daily. 7. MVI daily. 8. Reglan 10 mg t.i.d. 9. Xarelto 20 mg daily. FAMILY HISTORY: Noncontributory. SOCIAL HISTORY: Patient is , has 3 children, lives alone. Former smoker , 90 years pack history. No alcohol or illicit drug use. REVIEW OF SYSTEMS: 10-point review of systems is negative except for dizziness. PHYSICAL EXAMINATION: VITAL SIGNS: Temperature is 98.0, pulse is 90, respiratory rate 18, BP is 133/ 81. He is 97% on room air. GENERAL: Well-developed, well-nourished male in no acute distress. HEENT: Normocephalic, atraumatic. Pupils equal and reactive to light. NECK: Supple. CARDIOVASCULAR: Regular rate and rhythm. LUNGS: Clear. ABDOMEN: Soft, nontender, bowel sounds are positive. EXTREMITIES: No clubbing, cyanosis or edema. SKIN: No rash. HEMATOLOGIC: No petechia or purpura. NEUROLOGIC: Nonfocal. PSYCHIATRIC: The patient is alert and oriented and appropriate. PERTINENT LABORATORY AND X-RAYS: Current WBCs are 2.9, hemoglobin 14.6, hematocrit 43.8, platelet count 169,000. He has got 68% neutrophils, 20% lymphocytes. Sodium is 133, potassium 3.7, chloride 99, CO2 is 28, BUN is 9, creatinine 0.72, calcium 8.9, total bilirubin is 0.8, AST 17, ALT is 25, alkaline phosphatase is 79. Serum total protein is 6.3, albumin 3.9. ASSESSMENT: 1. 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 2. Dizziness, possibly related to #1. DISCUSSION: The patient was not started on steroids after a diagnosis with brain metastasis because he was asymptomatic. I have discussed this with Dr. Wright. At this time, we feel it is appropriate to start oral Decadron. Hopefully, this will improve his dizziness. Meclizine has been placed as a p.r.n. order. He was due to start brain radiation on Tuesday, which will be rescheduled. Once his dizziness has improved, he can be discharged home. He is not due for his next chemotherapy cycle until next week. We will provide supportive care. Thank you for the consult. CEDRIC
[2017-09-07] MEDS: HYDROcodone/Acetaminophen 10/325 mg Tablet PO PRN ×4 (00:36→19:28)
[2017-09-07] MEDS: Mometasone/Formoterol 120 PUFF INHALER INH SCH (06:40)
[2017-09-07] MEDS: Meclizine HCl 12.5 MG TAB PO SCH ×2 (07:54→18:31)
[2017-09-07] MEDS: Tamsulosin HCl 0.4 MG CAP PO SCH ×2 (07:54→19:58)
[2017-09-07] MEDS: Dexamethasone 4 MG TAB PO SCH ×3 (07:54→22:04)
[2017-09-07] MEDS: Sodium Chloride 0.9% 1,000 ML IV SCH (08:24)
[2017-09-07] MEDS ORDERED: Metoprolol Tartrate 50 MG TAB PO SCH (09:15)
--- NOTE | 2017-09-07 15:14 | PDOC.PN ---
- Subjective Encounter Start Date: 09/07/17 Encounter Start Time: 09:30 Subjective: pt up in bed still is very dizzy - Objective Resuscitation Status: Resuscitation Status DNR:Do Not Resuscitate Vital Signs & Weight: Vital Signs (12 hours) Temp Pulse Resp BP Pulse Ox 09/07/17 08:14 98.7 F 122 H 18 146/88 H 95 09/07/17 08:00 98.7 F 122 H 18 Weight Weight 210 lb I&O: 09/06/17 09/07/17 09/08/17 06:59 06:59 06:59 Intake Total 1680 1500 Output Total 300 1650 800 Balance 1380 -150 -800 Result Diagrams: 09/06/17 04:05 09/06/17 04:05 Phys Exam - Physical Examination HEENT: PERRLA, moist MMs, sclera anicteric, TM's clear, oral pharynx no lesions , 2+ tonsils Neck: no nodes, no JVD, supple, full ROM Respiratory: no wheezing, no rales, no rhonchi, wheezing present, clear to auscultation bilateral Cardiovascular: RRR, no significant murmur, no rub, gallop, irregular Gastrointestinal: soft, non-tender, no distention, positive bowel sounds Dx/Plan (1) Dizziness Code(s): R42 - DIZZINESS AND GIDDINESS Status: Acute (2) Anemia Code(s): D64.9 - ANEMIA, UNSPECIFIED Status: Chronic (3) Paroxysmal a-fib Code(s): I48.0 - PAROXYSMAL ATRIAL FIBRILLATION Status: Chronic (4) A-fib Code(s): I48.91 - UNSPECIFIED ATRIAL FIBRILLATION Status: Acute - Plan will increase his antivert to 25mg tid -: ? inpatient rehab since pt lives alone. will ask special education case manager -: pt has been using a lot of afrin. will rx flonase -: if pt feels better possible discharge in am * . Review of Systems - Review of Systems Eyes: negative: Pain, Vision Change, Conjunctivae Inflammation, Eyelid Inflammation, Redness, Other ENT: negative: Ear Pain, Ear Discharge, Nose Pain, Nose Discharge, Nose Congestion, Mouth Pain, Mouth Swelling, Throat Pain, Throat Swelling, Other Respiratory: negative: Cough, Dry, Shortness of Breath, Hemoptysis, SOB with Excertion, Pleuritic Pain, Sputum, Wheezing Cardiovascular: negative: chest pain, palpitations, orthopnea, paroxysmal nocturnal dyspnea, edema, light headedness, other Gastrointestinal: negative: Nausea, Vomiting, Abdominal Pain, Diarrhea, Constipation, Melena, Hematochezia, Other Genitourinary: negative: Dysuria, Frequency, Incontinence, Hematuria, Retention , Other Musculoskeletal: negative: Neck Pain, Shoulder Pain, Arm Pain, Back Pain, Hand Pain, Leg Pain, Foot Pain, Other - Medications/Allergies Allergies/Adverse Reactions: Allergies Allergy/AdvReac Type Severity Reaction Status Date / Time zolpidem tartrate Allergy Severe Anxiety Verified 07/18/17 11:24 [From [facility]] Medications: Current Medications Acetaminophen (Tylenol) 650 mg PO Q4H PRN PRN Reason: Headache/Fever or Pain Hydrocodone Bitart/Acetaminophen ([place] 5/325) 1 tab PO Q4H PRN PRN Reason: Moderate to Severe Pain (6-10) Last Admin: 09/06/17 02:30 Dose: 1 tab Hydrocodone Bitart/Acetaminophen ([place] 10/325) 1 tab PO Q4H PRN PRN Reason: Pain Hydrocodone Bitart/Acetaminophen ([place] 10/325) 2 tab PO Q4H PRN PRN Reason: Pain Last Admin: 09/07/17 07:55 Dose: 2 tab Albuterol/Ipratropium (Duoneb) 3 ml NEB [id number] PRN PRN Reason: SOB &/or Wheezing Dexamethasone (Decadron) 4 mg PO Q8H [facility] Last Admin: 09/07/17 07:54 Dose: 4 mg Sodium Chloride (Normal Saline 0.9%) 1,000 mls @ 75 mls/hr IV .[id number] [facility] Last Admin: 09/07/17 08:24 Dose: Not Given Meclizine HCl (Antivert) 25 mg PO TID [facility] Metoclopramide HCl (Reglan) 5 mg IVP Q4H PRN PRN Reason: Nausea Metoprolol Tartrate (Lopressor) 50 mg PO DAILY [facility] Mometasone Furoate/Formoterol Fumar (Dulera 200 Mcg/5 Mcg Inhaler) 1 puff INH DAILY-RT [facility] Last Admin: 09/07/17 06:40 Dose: 1 puff Ondansetron HCl (Zofran Odt) 4 mg PO Q6H PRN PRN Reason: Nausea/Vomiting Last Admin: 09/05/17 16:13 Dose: 4 mg Ondansetron HCl (Zofran) 4 mg IVP Q6H PRN PRN Reason: Nausea/Vomiting Sodium Chloride (Flush - Normal Saline) 10 ml IVF Q12HR [facility] Last Admin: 09/07/17 09:31 Dose: Not Given Sodium Chloride (Flush - Normal Saline) 10 ml IVF PRN PRN PRN Reason: Saline Flush Tamsulosin HCl (Flomax) 0.4 mg PO BID [facility] Last Admin: 09/07/17 07:54 Dose: 0.4 mg
[2017-09-07] MEDS ORDERED: Meclizine HCl 25 MG TAB PO SCH (15:15)
[2017-09-07] MEDS: Meclizine HCl 25 MG TAB PO SCH (19:58)
[2017-09-08] MEDS: Dexamethasone 4 MG TAB PO SCH (06:12)
[2017-09-08] MEDS: Mometasone/Formoterol 120 PUFF INHALER INH SCH (06:31)
[2017-09-08] MEDS ORDERED: Fluticasone Propionate Nasal Spray 16 gm Bottle NASAL SCH (09:00)
[2017-09-08] MEDS ORDERED: Metoprolol Tartrate 50 MG TAB PO SCH (09:00)
[2017-09-08] MEDS: Meclizine HCl 25 MG TAB PO SCH (09:14)
[2017-09-08] MEDS: Tamsulosin HCl 0.4 MG CAP PO SCH (09:14)
[2017-09-08] MEDS ORDERED: cefTRIAXone\\ROCEPHIN 1 GM in Sodium Chloride 0.9% 100 ML IVPB SCH (10:00)
[2017-09-08 10:09] LABS: Bilirubin Negative (Negative); Blood, Urine Small (Negative); Clarity CLOUDY (Clear); Glucose, Urine (Dipstick) Negative (Negative); Leukocyte Large (Negative); Nitrite Negative (Negative); Protein, Urine (Dipstick) Negative (Neg-Trace); Urobilinogen 0.2 mg/dL (0.2-1.0); pH, Urine 6.5 (5.0-9.0)
[2017-09-08 10:12] LABS: Bacteria/HPF 1+ HPF (None Seen); Hyaline Casts/LPF 0-3 HYALINE CAST LPF (0-3 Hyaline); Squamous Epithelial None Seen HPF (0-3)
[2017-09-08 12:25] VITALS: BP 134/71; TEMP 98
--- NOTE | 2017-09-10 12:15 | EKG ---
Test Reason : Blood Pressure : / mmHG Vent. Rate : 086 BPM Atrial Rate : 086 BPM P-R Int : 208 ms QRS Dur : 080 ms QT Int : 366 ms P-R-T Axes : 054 040 064 degrees QTc Int : 437 ms Normal sinus rhythm Normal ECG Confirmed by ONEL ESCALONA, VAMSHI ([id number]), offline editor GISELLA RUIZ ([id number]) on 09/10/2017 12:15:19 PM Referred By: Confirmed By:VAMSHI SYKES MD
== END 2017-09-08 12:58 | disposition home or self-care (01) ==
LOC: ERS 07:52 → ONC 13:05
PROVIDERS: ADMIT Internal Medicine; ATTEND Surgery
PROC: 05HM33Z Insertion of Infusion Device into Right Internal Jugular Vein, Percutaneous Approach (ICD-10-PCS; principal; 2017-09-06)
DX: C34.92 Malignant neoplasm of unspecified part of left bronchus or lung (principal); C79.31 Secondary malignant neoplasm of brain; I25.10 Atherosclerotic heart disease of native coronary artery without angina pectoris; I10 Essential (primary) hypertension; E78.5 Hyperlipidemia, unspecified; J44.9 Chronic obstructive pulmonary disease, unspecified; D64.9 Anemia, unspecified; I48.0 Paroxysmal atrial fibrillation; Z88.8 Allergy status to other drugs, medicaments and biological substances; Z79.82 Long term (current) use of aspirin; Z79.01 Long term (current) use of anticoagulants; Z79.899 Other long term (current) drug therapy; Z87.891 Personal history of nicotine dependence
CPT/HCPCS: 36561; 51701; 71045 ×2; 71275; 74018; 80048; 80053; 80076; 81001; 81003; 82550; 82553; 83690; 84484; 85025 ×2; 87077; 87086; 87186; 93005; 94640 ×3; 96361 ×4; 96365; 96375; 97116; 97139; 99285; C1788; G0378 ×2; G8978; G8979; 36415; 96374; A4216; G8996-GN-CH; G8997-GN-CH; J0696; J1642; J2250; J2270; J2405; J2704; J3010; J7050; J8540; Q0162

== ENCOUNTER 2017-10-24 07:59 | Outpatient (CLI) | payer MEDICARE ==
[2017-10-24] MEDS ORDERED: ISOVUE-370 76%-LOCM 1 ML ONE (10:03)
== END 2017-10-24 08:00 | disposition home or self-care (01) ==
LOC: BICCT 07:59
PROVIDERS: ATTEND Internal Medicine Medical Oncology
DX: C34.12 Malignant neoplasm of upper lobe, left bronchus or lung (principal); I26.99 Other pulmonary embolism without acute cor pulmonale
CPT/HCPCS: 71260